=== PATIENT | male | born 2000 | race Two or more races ===

== ENCOUNTER 2021-03-31 21:12 | Emergency (ER) | payer MEDICAID ==
[~2021-03-31] VITALS: Ht 172.7 cm; Wt 86.4 kg
[2021-04-01 00:09] VITALS: BP 125/86
== END 2021-04-01 00:20 | disposition home or self-care (01) ==
LOC: EMS 21:18
DX: R07.89 Other chest pain (principal); R00.0 Tachycardia, unspecified
CPT/HCPCS: 71045; 93005; 99283